=== PATIENT | female | born 1950 | race Caucasian/White ===

== ENCOUNTER 2021-08-09 13:42 | Emergency (ER) | payer MEDICARE, OTHER | END 2021-08-09 16:18 | disposition home or self-care (01) | LOC: FER 13:42 | DX: S86.111A Strain of other muscle(s) and tendon(s) of posterior muscle group at lower leg level, right leg, initial encounter (principal); Z88.5 Allergy status to narcotic agent; Z28.310 Unvaccinated for COVID-19 | CPT/HCPCS: 93971 ==